=== PATIENT | female | born 1945 | race Two or more races ===

== ENCOUNTER 2018-08-01 13:20 | Emergency (ER) | payer MEDICARE ==
[2018-08-01 13:49] LABS: ABS Basophils 0.1 10^3/ul (0-0.2); ABS Lymphocytes 1.6 10^3/ul (1.0-4.8); ABS Monocytes 0.3 10^3/ul (0-0.8); ABS Neutrophils 4.8 10^3/ul (1.5-7.7); Eosinophil % 0.1 %; Hematocrit 44 % (35-47); Hemoglobin 14.7 g/dL (12.0-16.0); Lymphocyte % 23.4 %; Mean Corpuscular HGB Conc 33 g/dL (31-36); Mean Corpuscular Hemoglobin 29 pg (27-31); Mean Corpuscular Volume 86 fL (80-97); Mean Platelet Volume 10.1 fL (7.4-10.4); Platelet Count 211 10^3/uL (150-450); Red Blood Count 5.13 10^6 /uL (3.70-4.87); Red Cell Distribution Width 14 % (10.5-15); White Blood Count 6.8 10^3/uL (3.5-10.8)
[2018-08-01 14:12] LABS: BUN/Creatinine Ratio 19.3 (8-20); Calcium 9.6 mg/dL (8.6-10.3); EGFR African American 81.5 (>60); EGFR Non-African American 67.4 (>60)
--- NOTE | 2018-08-01 15:41 | ED ---
GI/ HPI - HPI Summary HPI Summary: This patient is a 72 year old F presenting to ED with a chief complaint of vaginal bleeding since this 1045 morning. Patient had hysterectomy 40 years ago and has never had bleeding since. Patient has bled through 4 pads. Patient states the blood came out like water this morning without clots. Patient is on blood thinners (Plavix and baby aspirin). The patient rates the pain 0/10 in severity. Symptoms aggravated by nothing. Symptoms alleviated by nothing. Patient denies abdominal pain, N/V/D, urinary symptoms, dizziness, lightheadedness. 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 Patient does not use alcohol, tobacco, or drugs. FHx cancer, [place], heart disease, DM. - History of Current Complaint Chief Complaint: EDVaginalBleeding Time Seen by Provider: 08/01/18 14:35 Stated Complaint: BLEEDING PROBLEMS PER PT Hx Obtained From: Patient Onset/Duration: Started Hours Ago - 1045 this morning Number of Pads per Day: 4 Pain Intensity: 0 Associated Signs and Symptoms: Negative: Dizziness, Nausea, Vomiting, Diarrhea, Lightheadedness, Abdominal Pain Additional Signs & Symptoms: Positive: Vaginal Bleeding - Without clots Aggravating Factor(s): Nothing Alleviating Factor(s): Nothing - Additional Pertinent History Primary Care Physician: KAVEH - Allergy/Home Medications Allergies/Adverse Reactions: Allergies Allergy/AdvReac Type Severity Reaction Status Date / Time Sulfa (Sulfonamide Allergy Unknown Verified 08/01/18 13:27 Antibiotics) Reaction Details PMH/Surg Hx/FS Hx/Imm Hx Endocrine/Hematology History: Denies: Hx Diabetes Cardiovascular History: Reports: Hx Angioplasty, Hx Coronary Artery Disease, Hx Hypercholesterolemia, Hx Hypertension, Other Cardiovascular Problems/Disorders - PFO Denies: Hx Congestive Heart Failure, Hx Pacemaker/ICD GI History: Reports: Hx Cirrhosis, Hx Gastroesophageal Reflux Disease Comment Only: Other GI Disorders - HYPERLIPIDEMIA, CIRRHOSIS OF LIVER History: Reports: Other Problems/Disorders - TUMOR REMOVED FROM UTERUS, OVARY REMOVED Denies: Hx Renal Disease Musculoskeletal History: Denies: Hx Arthritis, Hx Osteoporosis Sensory History: Reports: Hx Contacts or Glasses Denies: Hx Hearing Aid Opthamlomology History: Reports: Hx Contacts or Glasses Neurological History: Reports: Hx Seizures Psychiatric History: Reports: Hx Anxiety, Hx Depression, Hx Panic Disorder - SOMETIMES - Surgical History Surgery Procedure, Year, and Place: right ovary removed,uterine tumor removed, heart cath with 3 stents [place] [facility] [place] PROMUS STENTS [place] FOR 1.5 OR 3T-SPATIAL GRADIANT FIELD OF UP TO 720G/CM Hx Anesthesia Reactions: No - Immunization History Date of Tetanus Vaccine: Unk Date of Influenza Vaccine: Fall 2012 Infectious Disease History: No Infectious Disease History: Denies: Hx Clostridium Difficile, Hx Hepatitis, Hx Human Immunodeficiency Virus (HIV), Hx of Known/Suspected MRSA, Hx Shingles, Hx Tuberculosis, Hx Known/ Suspected VRE, Hx Known/Suspected VRSA, History Other Infectious Disease, Traveled Outside the [place] in Last 30 Days - Family History Known Family History: Positive: Cardiac Disease, Diabetes, Other - Cancer, [place] - Social History Alcohol Use: None Hx Substance Use: No Substance Use Type: Reports: None Hx Tobacco Use: No Smoking Status (MU): Never Smoked Tobacco Type: Cigarettes Amount Used/How Often: 1pk /day Length of Time of Smoking/Using Tobacco: 2yrs Have You Smoked in the Last Year: No Review of Systems Negative: Abdominal Pain, Vomiting, Diarrhea, Nausea Genitourinary: Negative - Urinary symptoms Positive: other - Vaginal bleeding Neurological: Negative - Dizziness, lightheadedness All Other Systems Reviewed And Are Negative: Yes Physical Exam - Summary Physical Exam Summary: Appearance: well appearing, no pain distress Skin: warm, dry, reflects adequate perfusion Head/face:normal Eyes:EOMI, CHRISTIAN ENT: mucous membranes moist Neck: supple, non-tender Respiratory: diminished breath sounds Cardiovascular:RRR, pulses symmetrical Abdomen: non-tender, soft Bowel Sounds:present Musculoskeletal:normal, strength/ROM intact Neuro:normal, sensory motor intact, A&Ox3 Rectal exam: conducted with female structural architect present. Evidence of recent bleeding from enlarged external hemorrhoid. No blood in vaginal vault. Triage Information Reviewed: Yes Vital Signs On Initial Exam: Initial Vitals Temp Pulse Resp BP Pulse Ox 98.0 F 74 17 136/81 96 08/01/18 13:24 08/01/18 13:24 08/01/18 13:24 08/01/18 13:24 08/01/18 13:24 Vital Signs Reviewed: Yes Diagnostics - Vital Signs Vital Signs Temp Pulse Resp BP Pulse Ox 08/01/18 13:24 98.0 F 74 17 136/81 96 - Laboratory Lab Results: Lab Results 08/01/18 08/01/18 Range/Units 13:37 13:37 WBC 6.8 (3.5-10.8) 10^3/uL RBC 5.13 H (3.70-4.87) 10^6 /uL Hgb 14.7 (12.0-16.0) g/dL Hct 44 (35-47) % MCV 86 (80-97) fL MCH 29 (27-31) pg MCHC 33 (31-36) g/dL RDW 14 (10.5-15) % Plt Count 211 (150-450) 10^3/uL MPV 10.1 (7.4-10.4) fL Neut % (Auto) 70.8 % Lymph % (Auto) 23.4 % Mccreary % (Auto) 4.9 % Eos % (Auto) 0.1 % Baso % (Auto) 0.8 % Absolute Neuts (auto) 4.8 (1.5-7.7) 10^3/ul Absolute Lymphs (auto) 1.6 (1.0-4.8) 10^3/ul Absolute Monos (auto) 0.3 (0-0.8) 10^3/ul Absolute Eos (auto) 0.0 (0-0.6) 10^3/ul Absolute Basos (auto) 0.1 (0-0.2) 10^3/ul Absolute Nucleated RBC 0.0 10^3/ul Nucleated RBC % 0.0 Sodium 137 (135-145) mmol/L Potassium 4.0 (3.5-5.0) mmol/L Chloride 102 (101-111) mmol/L Carbon Dioxide 26 (22-32) mmol/L Anion Gap 9 (2-11) mmol/L BUN 16 (6-24) mg/dL Creatinine 0.83 (0.51-0.95) mg/dL Est GFR ( Amer) 81.5 (>60) Est GFR (Non-Af Amer) 67.4 (>60) BUN/Creatinine Ratio 19.3 (8-20) Glucose 90 (70-100) mg/dL Calcium 9.6 (8.6-10.3) mg/dL Result Diagrams: 08/01/18 13:37 08/01/18 13:37 Lab Statement: Any lab studies that have been ordered have been reviewed, and results considered in the medical decision making process. - Ultrasound No standard instances Ultrasound Interpretation Completed By: Radiologist Summary of Ultrasound Findings: Transvaginal US: Patient is status post hysterectomy. Ovaries not visualized. Dr. Ferreira has reviewed this radiology report. GIGU Course/Dx - Course Course Of Treatment: Patient had ultrasound laboratories which are stable. She had no bleeding from the vaginal cuff. She is status post hysterectomy. She did have an area of recently bled and enlarged external hemorrhoid. She'll be treated with Anusol suppositories and follow-up with her primary care physician. - Diagnoses Differential Diagnoses - Female: Other - RN INTEGRITY cancer, skin lesion, rectal bleeding Provider Diagnoses: External hemorrhoid Discharge - Sign-Out/Discharge Documenting (check all that apply): Patient Departure - Discharge Patient Received Moderate/Deep Sedation with Procedure: No - Discharge Plan Condition: Improved Disposition: HOME Prescriptions: Hydrocortisone SUPP* [Anusol HC Supp*] 25 mg WA BID #10 supp Patient Education Materials: Hemorrhoids (DC) Referrals: Ninoska Contreras MD [Primary Care Provider] - Additional Instructions: Maintain a soft diet. If you're getting constipated stool softener such as Colace will help. Be careful when bearing down hard to have a bowel movement as this can cause rebleeding. Return with pain, uncontrolled bleeding, worse or other concerns. - Billing Disposition and Condition Condition: IMPROVED Disposition: Home - Attestation Statements Document Initiated by Shani: Yes Documenting Scribe: Osvaldo Gutierrez Provider For Whom Shani is Documenting (Include Credential): Romeo Ferreira MD Scribe Attestation: IOsvaldo, scribed for Romeo Ferreira MD on 08/01/18 at 1904. Scribe Documentation Reviewed: Yes Provider Attestation: The documentation as recorded by the Osvaldo cr accurately reflects the service I personally performed and the decisions made by me, Romeo Ferreira MD Status of Scribe Document: Viewed
[2018-08-01 15:54] VITALS: BP 130/67
== END 2018-08-01 15:53 | disposition home or self-care (01) ==
LOC: ED 13:20
DX: K64.4 Residual hemorrhoidal skin tags (principal); N93.9 Abnormal uterine and vaginal bleeding, unspecified; Z88.2 Allergy status to sulfonamides; I25.10 Atherosclerotic heart disease of native coronary artery without angina pectoris; I10 Essential (primary) hypertension; Z95.5 Presence of coronary angioplasty implant and graft
CPT/HCPCS: 36415; 76830; 80048; 85025; 99282

== ENCOUNTER → 2019-02-26 10:03 | Day surgery (SDC) | payer MEDICARE ==
[~2019-02-26 10:03] MED LIST: Heparin 2 UNITS/ML IVPREMIX* 2,000 ML IV ONE; Heparin(*) 1000 UNIT/ML 10 ML VIAL CATH LAB IV ONE; Iohexol 350 (CONTRAST) 200 ML MDV IV ONE; Lidocaine 1% INJ* 10 MG/ML 30 ML SDV ONE; Midazolam* 1 MG/ML 5 ML VIAL (5 MG) ONE; NS 0.9% 1000 ML** 1,000 ML IV SCH; VERAPAMIL 2.5 MG/ML 2 ML VIAL ** 5 mg/2 ml ONE; fentaNYL* 50 MCG/ML 2 ML VIAL (100 MCG VIAL) ONE; nitroGLYCERIN DRIP* 25,000 MCG/250 ML BTL ONE
[2019-02-26 15:43] VITALS: BP 101/66
--- NOTE | 2019-02-26 21:52 | CATH ---
CC: Dr. Contreras; Dr. Arshad* CATHETERIZATION REPORT: DATE OF PROCEDURE: 02/26/19 PRIMARY CARE PHYSICIAN: Dr. Contreras. BUILD AND DEPLOYMENT ENGINEER: Dr. Arshad. PROCEDURES: Right radial artery access with ultrasound assistance, bilateral selective coronary cineangiography, left heart catheterization, and left ventriculography. HISTORY: A 73-year-old woman with prior anterior infarct in 2013 treated with 2 stents in the LAD and a stent in the diagonal branch. Subsequently LV function has improved significantly. She was referred for coronary angiography because of atypical chest pain, 3 episodes, and stress echo, which was submaximal, but revealed an exercise-induced anterior wall motion abnormality with a decrease in ejection fraction. PROCEDURE ACCESS: Right radial artery with ultrasound guidance sheath 6F slender. MEDICATIONS: 1. Subcu lidocaine. 2. IV Versed. 3. IV fentanyl. 4. Heparin 3000 units. 5. Verapamil 3 mg. 6. Nitroglycerin 300 mcg IA. DIAGNOSTIC CATHETERS: 5F TIG4, 5F pigtail. HEMODYNAMICS: LV 121/5-23. No aortic valve gradient on pullback. ANGIOGRAPHY: Right radial artery: There was some resistance to passage of the J- wire, hence injection was performed. It showed only relatively small caliber radial artery with some tortuosity, but no stenosis or a loop. This was easily traversed a Wholey wire. Left Main: The left main has a distal 20% to 30% stenosis as before. LAD: The LAD is moderate, with moderate proximal calcification and luminal irregularity. The previously placed stents in the LAD and the diagonal stent are all patent, there is no significant intimal hyperplasia or stenosis. Distal LAD reaches the apex. The LAD has no significant flow-limiting stenosis. Circumflex: The circumflex is not dominant, is moderate with a small first marginal, a moderate bifurcated second marginal, and through a small posterolateral. The circumflex has no stenosis. The RCA is large, with minor luminal irregularity. It is dominant, it supplies a large PDA, a number of small posterolaterals and ends with a large posterolateral. RCA has no significant stenosis. LV GRAM: There is very mild distal anterolateral hypokinesis, estimated LVEF 50 % to 55%. There is probable catheter-induced MR as the ECHO 1 year ago revealed no significant MR and there was no audible MR on examination today. CONCLUSION: 1. No significant obstructive coronary artery disease, likely noncardiac chest pain. 2. Dyspnea, at least in part due to diastolic dysfunction, cannot rule out a pulmonary component. 3. Successful right radial artery access. 4. Normal left ventricular ejection fraction with minimal wall motion abnormality. [id number]/[facility] #: [id number] [facility]
== END | disposition home or self-care (01) ==
LOC: CHICATH 10:03
PROVIDERS: ATTEND Internal Medicine Cardiovascular Disease
DX: I25.5 Ischemic cardiomyopathy (principal); I25.10 Atherosclerotic heart disease of native coronary artery without angina pectoris; R42 Dizziness and giddiness; R06.02 Shortness of breath; F41.8 Other specified anxiety disorders; E78.2 Mixed hyperlipidemia; I10 Essential (primary) hypertension; I25.2 Old myocardial infarction; R94.31 Abnormal electrocardiogram [ECG] [EKG]
CPT/HCPCS: 93458; 99156; 99157; J1644; J2250; J3010